=== PATIENT | male | born 1995 | race Two or more races ===

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

== ENCOUNTER → 2017-06-21 | Day surgery (SDC) | payer OTHER ==
[~2017-06-21] VITALS: Ht 182.9 cm; Wt 58.1 kg
[~2017-06-21] MED LIST: *RESP: ALBUTEROL 2.5 MG/3 ML NEB (PRN) PERIprocedural Use ONLY NEB ONE; ACETAMINOPHEN 1000 MG/100 ML 100 ML IV ONE; ACETAMINOPHEN/HYDROcodone 325 MG/5 MG TAB PO PRN; BUPIVACAINE/EPINEPHRINE 0.25% PF 10 ML VIAL ONE; CHLORHEXIDINE GLUCONATE 2 % 1 PACK (2 CLOTHS) TOPICAL PRN; CHLORHEXIDINE GLUCONATE 4% SOLN 120 ML BTL TOPICAL SCH; DEXAMETHASONE SOD PHOS 4 MG/ML VIAL IV ONE; DO NOT ADM ANY ANTICOAGULANT DRUGS PRN; FAMOTIDINE 20 MG/2 ML VIAL ONE; FUROSEMIDE 20 MG/2 ML VIAL IV PUSH ONE; FUROSEMIDE 20 MG/2 ML VIAL ONE; GENTAMICIN SULFATE 80 MG/2 ML VIAL ONE; IBUP200T47 PO; LACTATED RINGER'S 1000 ML INJ 1,000 ML IV ONE; LACTATED RINGER'S 1000 ML IV PRN; LIDOCAINE HCL 1% PF 5 ML SYRINGE OTHER ONE; METOPROLOL TARTRATE 25 MG TAB PO PRN; MIDAZOLAM HCL 2 MG/2 ML VIAL IV ONE; MORPHINE SULFATE 2 MG/ML INJ IV PUSH PRN; MORPHINE SULFATE 4 MG/ML INJ IV ONE; NORC5TAB PO; ONDANSETRON HCL 4 MG/2 ML VIAL IV ONE; ONDANSETRON HCL 4 MG/2 ML VIAL IV PUSH PRN; POVIDONE IODINE 5% (ANTISEPSIS KIT) 4 APPLICATIONS EACH NARE PRN; PROPOFOL 200 MG/20 ML AMP IV ONE; SODIUM CHLORID 0.9% 500 ML IV PRN; SODIUM CHLORIDE 0.9% FLUSH 10 ML FLUSH IV FLUSH PRN; SODIUM CHLORIDE 0.9% FLUSH 10 ML FLUSH IV FLUSH SCH; ceFAZolin 2 GM PREMIX 50 ML IV SCH
--- NOTE | 2017-06-21 08:00 | PD.OP ---
cc: Pirmo Peguero MD Operative Report Date of Surgery: Jun 21, 2017 Preoperative Diagnosis: Painful hardware right ulna Postoperative Diagnosis: Procedure: Removal deep hardware right ulna Anesthesia: LMA Surgeon: Primo Peguero Manager Reading(s): RENZO Max PA-C Operation and Findings: Renetta is known to me from previous open reduction internal fixation of right radius and ulna shaft fractures. He has healed his fractures but has developed pain over the ulnar plate. Risk and benefits of surgery were discussed in depth with patient and his family. He wishes to proceed with removal of hardware. Operative site was marked. Informed consent was confirmed after detailed discussion of the risk and benefits of procedure. He is brought to operating room. He was given IV antibiotics. He was given IV sedation and LMA. Right arm was prepped with alcohol followed by Hibiclens and draped in usual sterile fashion. Timeout procedure was performed. Procedure began with a 4 inch incision through the previous scar on the right forearm. The subcutaneous border of the ulna was exposed. Scar tissue was incised over the plate. The plate was exposed. Scar tissue was removed around the heads of the screws. The screws were now loosened and then removed. The plate was elevated. Fracture was visualized under fluoroscopy. Fracture. To be completely healed. The wound was thoroughly irrigated. The fascial layer was closed with 3-0 Vicryl. Subcutaneous tissues closed with 3-0 Vicryl. Skin was closed with 3-0 nylon. Sterile dressings were applied. Patient was awakened and transferred to recovery room in stable condition. Needle sponge counts were correct. Primo Peguero MD Jun 21, 2017 08:00
--- NOTE | 2017-06-21 09:17 | RADRPT ---
EXAM DATE/TIME: 06/21/2017 09:00 [facility] COMPARISON: No previous studies available for comparison. INDICATIONS : Shortness of breath and congestion. MEDICAL HISTORY : unobtainable. SURGICAL HISTORY : Unobtainable. ENCOUNTER: Initial ACUITY: 1 day PAIN SCORE: Non-responsive. LOCATION: Bilateral chest FINDINGS: A single view of the chest demonstrates mild interstitial prominence and perihilar vascular congestio n. The cardiomediastinal contours are unremarkable. Osseous structures are intact. CONCLUSION: Diffuse pulmonary interstitial prominence suggesting mild vascular congestion. Karlos Herrera MD on June 21, 2017 at 9:15 Board Certified Radiologist. This report was verified electronically.
[2017-06-21 14:15] VITALS: BP 108/66; PULSE 94; RESP 16; TEMP 98.2; O2SAT 97
--- NOTE | 2017-06-21 15:02 | RADRPT ---
EXAM DATE/TIME: 06/21/2017 07:52 [facility] COMPARISON: FOREARM RIGHT (2VWS), November 03, 2016, 8:44. INDICATIONS : Right forearm hardware removal. OR. MEDICAL HISTORY : None. SURGICAL HISTORY : ORIF, right forearm. ENCOUNTER: Subsequent ACUITY: 1 day PAIN SCORE: Non-responsive. LOCATION: Right forearm FINDINGS: A single view of the <right forearm was performed. The ulnar plate has been removed. The radial plate remains. No residual fracture line is seen. CONCLUSION: Radial plate remains in good position. Karlos Herrera MD on June 21, 2017 at 15:00 Board Certified Radiologist. This report was verified electronically.
== END | disposition home or self-care (01) ==
LOC: HSDC 05:46
PROVIDERS: ATTEND Orthopaedic Surgery Orthopaedic Trauma
DX: T84.84XA Pain due to internal orthopedic prosthetic devices, implants and grafts, initial encounter (principal); Y83.1 Surgical operation with implant of artificial internal device as the cause of abnormal reaction of the patient, or of later complication, without mention of misadventure at the time of the procedure
CPT/HCPCS: 01830; 20680; 71010; 73090; 76000; J0131; J0690; J1100; J1580; J1940; J2250; J2270; J2405; J3010; J7120; J7613; 94664